=== PATIENT | male | born 1965 | race Caucasian/White ===

== ENCOUNTER 2016-10-15 11:26 | Inpatient (IN) ==
[2016-10-15] MEDS ORDERED: cefOXitin 2,000 MG in D5% in Water (Mini-Bag+) 100 ML IVPB ONE (11:57)
[2016-10-15] MEDS ORDERED: Lidocaine -MPF 1% 2 ML VIAL ID ONE (11:57)
[2016-10-15] MEDS ORDERED: Ringers Solution, Lactated 1,000 ML IVC SCH ×2 (12:00→14:30)
--- NOTE | 2016-10-15 12:21 | Anesthesia Evaluation PreOp ---
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: Other (anxiety) Other Medical History: Denies Any Significant HX Anesthesia History: No Prior Anesthetic Complications, Past Anesthesia (cscope) Alcohol Use: none Drug use: none Medications and Allergies Acyclovir [Zovirax] 400 mg PO DAILY 10/09/16 [History] Aspirin [Lo-Dose Aspirin EC] 81 mg PO DAILY 10/09/16 [History] Lisinopril [Zestril] 40 mg PO DAILY 10/09/16 [History] Sertraline [Zoloft] 25 mg PO DAILY 10/09/16 [History] Allergies No Known Allergies Allergy (Verified 10/09/16 14:46) - Meds/Allergy Pre-op Review Medications Reviewed: Yes Allergies Reviewed: Yes Beta Blockers on Current Med List: No Anesthesia Results - Labs Laboratory Tests 10/09/16 10/09/16 10/09/16 14:56 14:56 14:56 Hgb 15.3 Hct 44.1 Plt Count 251 PT 11.8 INR 1.1 APTT 31.9 Sodium 137 Potassium 4.1 Creatinine 1.03 - Imaging EKG: report reviewed (nsr) Anesthesia Exam O2 Sat Height 1.75 m Height 1.75 m Weight 112.037 kg Weight 115.212 kg Height: 1.75 Weight: 112 NPO (# of Hours): >8 - HEENT Pupil (Motor): Pupils equal, EOMI Mallampati: I Teeth: Normal Oral Opening: Greater than 3 - UNION CONTRACT REPRESENTATIVE LOC: Oriented UNION CONTRACT REPRESENTATIVE Motor: Normal RUE, Normal LUE, Normal RLE, Normal LLE, Normal Face UNION CONTRACT REPRESENTATIVE Sensory: Normal: RUE, LUE, RLE, LLE, Face - Cardiac Rhythm: Regular Murmur: None - Pulmonary Breath Sounds: bilateral Clear Respiratory Effort: Symmetrical Anesthesia Assess/Plan ASA Score: 2 Modified Phoenix Scale for Level of Consciousness: Cooperative, oriented, and tranquil Anesthetic Plan: General Monitoring Plan: Standard Monitors Recovery Plan: PACU
--- NOTE | 2016-10-15 12:22 | History & Physical Report ---
Date of Encounter: 10/15/16 Time of Encounter: 12:21 24 Hour HP Update - Instructions Instructions: If the History and Physical is less than 30 days old and was completed prior to A.M. admission and or procedure and has NOT been updated on calendar day of procedure please complete this update prior to performing procedure. - Update Patient reports changes in Medical Condition: No Changes in examination, assessment, or condition: No Changes in Medication: No Preop tests/diagnostics Reviewed: Yes Pre-Op MRSA Screen: Negative Surgery Remains Indicated: Yes Consent for Planned Operative Procedure(s) Verified: Yes - Pre-Operative Checklist Preoperative Checklist Indicated: No Prophylactic Antibiotic Ordered: Yes Home Medications Include Beta Lisy: No Beta Lisy Taken Today (Day of Surgery): No Beta Lisy Taken Yesterday (Day Prior to Surgery): No Is VTE Prophylaxis Indicated?: NO
[2016-10-15] MEDS ORDERED: *HR* Rocuronium Bromide 50 MG/5 ML VIAL ONE ×2 (12:25→13:57)
[2016-10-15] MEDS ORDERED: Lidocaine -MPF 2% 2 ML VIAL ONE ×2 (12:25→13:51)
[2016-10-15] MEDS ORDERED: *HR* Succinylcholine 200 MG/10 ML VIAL IVP ONE (12:25)
[2016-10-15] MEDS ORDERED: Lidocaine -MPF 4% 5 ML AMPUL ONE (12:25)
[2016-10-15] MEDS ORDERED: *HR* FentaNYL (PF) 100 MCG/2 ML VIAL ONE (12:25)
[2016-10-15] MEDS ORDERED: Dexamethasone 4 MG/ML VIAL ONE (12:25)
[2016-10-15] MEDS ORDERED: *HR* Propofol 200 MG/20 ML VIAL IVP ONE (12:25)
[2016-10-15] MEDS ORDERED: Ondansetron 4 MG/2 ML VIAL ONE (12:25)
[2016-10-15] MEDS ORDERED: *HR* Midazolam HCl 2 MG/2 ML VIAL ONE (12:25)
[2016-10-15] MEDS ORDERED: *HR* Phenylephrine 10 MG/ML VIAL ONE (13:15)
[2016-10-15] MEDS ORDERED: *HR* Metoprolol 5 MG/5 ML VIAL IVP ONE (13:35)
[2016-10-15] MEDS ORDERED: *HR* Labetalol 100 MG/20 ML MDV IVP PRN (14:26)
[2016-10-15] MEDS ORDERED: *HR* Promethazine 25 MG/ML VIAL IVP PRN (14:26)
[2016-10-15] MEDS ORDERED: *HR* HYDROmorphone 2 MG/ML SYRINGE ONE (15:34)
[2016-10-15] MEDS ORDERED: Neostigmine Methylsulfate 3 MG/3 ML SYRINGE ONE (15:41)
[2016-10-15] MEDS ORDERED: CefOXitin 1,000 MG VIAL ONE (15:57)
--- NOTE | 2016-10-15 16:26 | Operative Note ---
Date of procedure: 10/15/16 Pre-op diagnosis: sigmoid colon cancer Post-op diagnosis: same Procedure: Laparoscopic sigmoid resection Anesthesia: SVETLANAA Surgeon: Jonathan Oates Estimated blood loss (cc): 150 Specimen: sigmoid colon Disposition: PACU Procedure in Detail: Date of surgery: 10/15/16 After properly identifying the patient, the patient was brought to the operating room and placed in the supine position. After proper IV sedation was achieved followed by general endotracheal intubation, the patient was placed in the low lithotomy position and the patient's abdomen and perianal area were prepped and draped in normal sterile fashion. A timeout was performed noting the patient's name and type of procedure to be performed. A 15 blade scalpel was used to make an incision just to the right of the midline above the umbilicus. A 12 mm Visiport was then used to dissect the subcutaneous tissue, external and internal oblique fascia, and transversalis abdominous fascia of the abdomen was entered. A laparoscopic camera was placed to the port which showed no injury to the intra-abdominal organs upon entry. A right lower quadrant 5 mm port and a infraumbilical near midline 5mm port were placed under direct camera visualization. A left lateral 12 mm port was then placed under direct camera visualization. The patient was placed in reverse Trendelenburg position and the right upper quadrant was examined. First the left upper quadrant and splenic flexure were identified and examined. The splenic flexure was taken down with Bovie cauterization blunt dissection. F lateral sidewall attachments were also dissected free with comminution Bovie cauterization and retraction. This allowed for medial rotation of the descending colon. The colon was examined and 2 areas of blue staining were noted along the serosa of the sigmoid approximately 8 cm from one another. The sigmoid colon was then retracted anteriorly and the mesentery was scored at the base with Bovie cauterization. This allowed for careful dissection through the mesenteric adipose tissue. A laparoscopic LigaSure was then used to further dissect through the mesentery until the left ureter could be carefully identified which was noted to be outside of the dissection field. Dissection was carried down to the sacral prominence and the peritoneum to the left and right lateral of the rectosigmoid junction was scored with Bovie cauterization. This allowed for further dissection of the mesentery away from its normal resting position. The decision was made to go ahead and convert this to the open procedure by making a incision from the level of the pubic symphysis to just inferior to the umbilicus along the midline. Bovie cauterization was used to dissect through subcutaneous tissue and the rectus abdominous fascia was incised and the abdomen was opened. A medium sized Demetris was brought onto the field to retract and protect the subcutaneous tissue. The remaining dense lymphatics of the sigmoid mesentery were transected with a handheld LigaSure and Bovie cauterization until the rectosigmoid junction was identified and transected with a contour stapler. The sigmoid segment was then removed and the left colonic stump was identified. The staple line was excised and sizers were placed through the which was used to determine that a 29-Anguillan stapler would be appropriate. A 2-0 Prolene suture was used to create a pursestring along the opening of the left colonic stump and a EEA stapler was brought onto the operative field. The anvil was placed through the opening and pursestring was tied. The male end of the EEA stapler was introduced through the anus and its end was extruded just anterior to the rectal staple line. The anvil was connected and the EEA staple was retracted and fired without difficult. Inspection demonstrated two intact anastomotic rings which were submitted to pathology. The pelvis was then filled with normal saline solution and air was insufflated through the anus while the left colon above the staple line was clamped. There were scant bubbles noticed, however, it was not certain whether or not this was a leak or residual air pockets in the pelvis. The staple line was imbricated with interrupted 3-0 silk sutures and the pelvis was once again filled with saline and air was insufflated through the anus which showed no evidence of leak or air bubbles. The pelvis was then suctioned and this time filled with normal saline containing Mefoxin. The decision was made to conclude the surgical procedure by removing all ports and placing Seprafilm within the abdomen. The Demetris was removed and the fascia was reapproximated with 2 running #1 PDS sutures. The subcutaneous tissue was reapproximated with interrupted 2-0 Vicryl sutures and the remaining epidermal and dermal layers were reapproximated with hilaria. Needle, sponge, and instrument counts were correct 2 and the incisions were covered with 4 x 4's and Band-Aids. The patient was aroused from IV sedation, extubated in the operating room without complication, and transported to the recovery room in stable condition.
[2016-10-15] MEDS: *HR* HYDROmorphone (PF) 1 MG/ML SYRINGE IVP PRN ×4 (17:12→19:45)
--- NOTE | 2016-10-15 18:27 | Anesthesia Evaluation Post Op ---
Date of Encounter: 10/15/16 Time of Encounter: 18:25 - Vital Signs Vital Signs: Vital Signs/O2 Sat/Glucose, Most Current Temp Pulse Resp BP Pulse Ox 10/15/16 18:06 97.4 F L 105 16 113/66 98 10/15/16 17:56 110 16 122/62 98 10/15/16 17:46 99 16 119/68 98 10/15/16 17:36 97.1 F L 106 16 119/67 95 10/15/16 17:26 98 16 120/68 98 10/15/16 17:16 97 16 121/68 98 10/15/16 17:06 97.0 F L 97 16 125/66 97 10/15/16 16:56 100 16 123/77 94 10/15/16 16:46 89 16 133/78 100 10/15/16 16:36 97.0 F L 81 14 123/72 100 - Lungs Lungs: Clear Ascult./Percussion - Airway Airway: Non-obstructed - Cardiovascular Regular Rate - Mental Status Mental Status: Alert & Oriented, Answers Appropriately - Pain Pain Scale: 2 Pain Scale used: Numeric (1 - 10) - Nausea Vomiting Nausea Vomiting: Not Present - Hydration Hydration: NPO, Reyes catheter - Discharge PostOp Status: Transfer Patient to floor Anes Supervising Prov Stmt: Pt seen/evaluated, VSS And pt has met criteria for dischage to floor. - MD Nasir
[2016-10-15] MEDS ORDERED: Naloxone 0.4 MG/ML INJ IVP PRN (18:57)
[2016-10-15] MEDS ORDERED: 0.9 % Sodium Chloride 1,000 ML IVC SCH (18:57)
[2016-10-15] MEDS ORDERED: Ondansetron 4 MG/2 ML VIAL IVP PRN (18:57)
[2016-10-15] MEDS: Ketorolac 30 MG/ML VIAL IM SCH (19:30)
[2016-10-16] MEDS: Ketorolac 30 MG/ML VIAL IM SCH ×5 (00:29→23:14)
[2016-10-16] MEDS: *HR* HYDROmorphone (PF) 1 MG/ML SYRINGE IVP PRN ×2 (01:31→06:18)
[2016-10-16 05:09] LABS: Basophils % 0.1 %; Hematocrit 40.8 % (37.5-50.1); Hemoglobin 13.7 g/dL (12.9-16.9); Immature Granulocytes % 0.6 % (0-4); Lymphocytes # 0.9 K/mcL (0.6-4.6); Lymphocytes % 6.6 %; Mean Corpuscular HGB Conc 33.6 g/dL (31.6-35.5); Mean Corpuscular Hemoglobin 28.5 pg (28.0-33.3); Mean Platelet Volume 9.7 fL (9.4-12.4); Monocytes % 8.8 %; Neutrophils # 11.9 K/mcL (1.6-8.9); Platelet Count 254 K/mcL (140-400); Red Cell Distribution Width 13.3 % (11.5-14.5); Segmented Neutrophils % 83.9 %
[2016-10-16 05:14] LABS: Monocytes # 1.3 K/mcL (0.0-1.3)
[2016-10-16 05:27] LABS: BUN/Creatinine Ratio 12 (6-26); Blood Urea Nitrogen 12 mg/dL (8-26); Carbon Dioxide 22 mEq/L (19-29); Chloride 105 mEq/L (98-109); Glucose 129 mg/dL (70-99); Magnesium 1.8 mg/dL (1.6-2.6); Osmolality,Calculated 285 (280-300); Potassium 4.7 mEq/L (3.5-4.5); Sodium 137 mEq/L (136-145); eGFR For African Americans > 60 (> 60); eGFR For Non-African Americans > 60 (> 60)
[2016-10-16] MEDS ORDERED: cefOXitin 1,000 MG in D5% in Water (Mini-Bag+) 100 ML IVPB STA (06:28)
--- NOTE | 2016-10-16 07:15 | General Surgery Progress Note ---
Date of Encounter: 10/16/16 Time of Encounter: 07:13 - Assessment and Plan (1) Cancer of sigmoid Current Visit: Yes Status: Acute The patient is POD#1 from a laparoscopic sigmoid resection. Noted mild elevation of his WBC which is anticipated due to recent surgery and "stirring up " in the margination of white cells from the vessels. Continue to monitor. We will DC Reyes this a.m. Will allow clears. Start oral Percocet and continue with IV Dilaudid as needed. Subjective Patient reports: other (Noted incisional abdominal pain. No nausea. No flatus. ) Objective Vital Signs - Last 8 Hours Temp Pulse Resp BP Pulse Ox 10/16/16 06:56 98.9 F 92 16 98/60 93 10/16/16 04:13 98.7 F 86 18 92/61 96 10/15/16 23:43 98.5 F 106 18 99/60 96 Intake and Output 10/15/16 10/15/16 10/16/16 15:59 23:59 07:59 Intake Total 30 / 30 0 / 0 Output Total 575 / 575 275 / 275 Balance -545 / -545 -275 / -275 Intake: Oral 30 / 30 0 / 0 Output: Estimated Blood Loss 150 / 150 Urine Amount (Catheter) 200 / 200 Catheter 225 / 225 275 / 275 Other: Weight 112.037 kg 113.511 kg Blood Glucose* 134 112 Patient Weight 10/16/16 23:59 Weight 113.511 kg - General physical appearance well developed, well nourished, no distress - Respiratory normal expansion - Abdomen Abdomen: Present: bowel sounds present, soft, tender (Noted in the lower abdomen ) - Labs 10/16/16 03:48 10/16/16 03:48 Diabetes panel 10/16/16 Range/Units 03:48 Sodium 137 (136-145) mEq/L Potassium 4.7 H (3.5-4.5) mEq/L Chloride 105 (98-109) mEq/L Carbon Dioxide 22 (19-29) mEq/L BUN 12 (8-26) mg/dL Creatinine 0.98 (0.72-1.25) mg/dL Glucose 129 H (70-99) mg/dL Calcium 9.0 (8.6-10.8) mg/dL Calcium panel 10/16/16 Range/Units 03:48 Calcium 9.0 (8.6-10.8) mg/dL Pituitary panel 10/16/16 Range/Units 03:48 Sodium 137 (136-145) mEq/L Potassium 4.7 H (3.5-4.5) mEq/L Chloride 105 (98-109) mEq/L Carbon Dioxide 22 (19-29) mEq/L BUN 12 (8-26) mg/dL Creatinine 0.98 (0.72-1.25) mg/dL Glucose 129 H (70-99) mg/dL Calcium 9.0 (8.6-10.8) mg/dL Adrenal panel 10/16/16 Range/Units 03:48 Sodium 137 (136-145) mEq/L Potassium 4.7 H (3.5-4.5) mEq/L Chloride 105 (98-109) mEq/L Carbon Dioxide 22 (19-29) mEq/L BUN 12 (8-26) mg/dL Creatinine 0.98 (0.72-1.25) mg/dL Glucose 129 H (70-99) mg/dL Calcium 9.0 (8.6-10.8) mg/dL - VTE Documentation of Mechanical Device: Intermittent pneumatic compression device Consult Discharge Plan - Plan Referrals: Jonathan Oates MD [Partnered Physician] - 10/30/16 2:35 pm Jolene Ross CNP [Primary Care Provider] -
[2016-10-16] MEDS ORDERED: *HR* HYDROmorphone (PF) 1 MG/ML SYRINGE IVP PRN (07:16)
[2016-10-16] MEDS: Pantoprazole 40 MG VIAL IVP SCH (08:19)
[2016-10-16] MEDS: *HR* OxyCODONE/APAP 10/325 TABLET PO PRN ×3 (08:24→21:42)
[2016-10-16] MEDS: 0.9 % Sodium Chloride 1,000 ML IVC SCH ×2 (08:30→12:44)
[2016-10-16] MEDS: *HR* Heparin 5,000 UNIT/ML VIAL SQ SCH ×2 (17:26→17:38)
[2016-10-17] MEDS: 0.9 % Sodium Chloride 1,000 ML IVC SCH ×2 (02:01→17:02)
[2016-10-17 04:43] LABS: Basophils % 0.3 %; Eosinophils % 0.3 %; Hematocrit 35.4 % (37.5-50.1); Immature Granulocytes % 0.8 % (0-4); Lymphocytes # 1.8 K/mcL (0.6-4.6); Mean Corpuscular HGB Conc 32.8 g/dL (31.6-35.5); Mean Corpuscular Volume 85.3 fL (83.0-100.0); Mean Platelet Volume 9.3 fL (9.4-12.4); Monocytes # 0.9 K/mcL (0.0-1.3); Monocytes % 10.9 %; Neutrophils # 5.1 K/mcL (1.6-8.9); Platelet Count 184 K/mcL (140-400); Red Blood Count 4.15 M/mcL (4.19-5.50); Red Cell Distribution Width 13.4 % (11.5-14.5); Segmented Neutrophils % 64.7 %
[2016-10-17 05:02] LABS: Hemoglobin 11.6 g/dL (12.9-16.9)
[2016-10-17 05:03] LABS: BUN/Creatinine Ratio 12 (6-26); Blood Urea Nitrogen 11 mg/dL (8-26); Calcium 8.4 mg/dL (8.6-10.8); Carbon Dioxide 21 mEq/L (19-29); Chloride 107 mEq/L (98-109); Glucose 105 mg/dL (70-99); Osmolality,Calculated 286 (280-300); Potassium 3.7 mEq/L (3.5-4.5); Sodium 138 mEq/L (136-145); eGFR For African Americans > 60 (> 60); eGFR For Non-African Americans > 60 (> 60)
[2016-10-17] MEDS: Ketorolac 30 MG/ML VIAL IM SCH ×3 (05:38→16:59)
[2016-10-17] MEDS: *HR* OxyCODONE/APAP 10/325 TABLET PO PRN ×3 (05:38→19:55)
[2016-10-17] MEDS: *HR* Heparin 5,000 UNIT/ML VIAL SQ SCH ×2 (06:36→16:59)
[2016-10-17] MEDS: Pantoprazole 40 MG VIAL IVP SCH (08:38)
--- NOTE | 2016-10-17 14:21 | General Surgery Progress Note ---
Date of Encounter: 10/17/16 Time of Encounter: 13:15 - Assessment and Plan (1) Cancer of sigmoid Current Visit: Yes Status: Acute POD #2 Laparoscopic sigmoid resection with Dr. Oates Continue clear liquids IV fluids Supportive care/pain control Increase activity as tolerated- ambulate hallways IS every 1 hour while awake Repeat am labs Pathology pending (2) DVT prophylaxis Current Visit: Yes Status: Acute Heparin 5,000 units SQ twice daily for DVT prophylaxis Ambulate hallways TID with assistance Subjective Patient reports: no new complaints, still having pain (surgical), tolerating liquids well, voiding w/o difficulty, no flatus, bowel movement (liquid X 2), nausea (mild nausesa this morning), afebrile Objective Vital Signs - Last 8 Hours Temp Pulse Resp BP Pulse Ox 10/17/16 10:23 98.0 F 96 16 120/81 96 10/17/16 06:54 98.1 F 89 18 103/66 93 Intake and Output 10/16/16 10/17/16 10/17/16 23:59 07:59 15:59 Intake Total 180 / 180 1060 / 1060 800 / 800 Output Total 325 / 325 0 / 0 250 / 250 Balance -145 / -145 1060 / 1060 550 / 550 Intake: IV Fluids 1000 / 1000 0.9 % Sodium Chloride 1, 1000 / 1000 000 ML @ 75 mls/hr IVC . [id number] ELVIN Rx#: [id number] Oral 180 / 180 60 / 60 800 / 800 Output: Urine 325 / 325 0 / 0 250 / 250 Other: Meal Dinner Breakfast Weight 122.3 kg Patient Weight 10/17/16 23:59 Weight 122.3 kg - General physical appearance well developed, well nourished, no distress - Eyes normal ocular movement - ENT normal mucosa, atraumatic, normocephalic - Neck Neck exam: trachea midline - Respiratory normal respiratory effort, clear to auscultation - Abdomen Abdomen: Present: bowel sounds present (minimal, hypoactive), soft, tender ( expected post-operative tenderness) - Incision Incision: Present: clean and dry, intact - Integumentary no rash - Neurologic CN 2-12 grossly intact - Psychiatric oriented to time, oriented to person, oriented to place, speech is normal, memory intact - Labs 10/17/16 04:15 04/07/17 04:15 Diabetes panel 10/17/16 Range/Units 04:15 Sodium 138 (136-145) mEq/L Potassium 3.7 D (3.5-4.5) mEq/L Chloride 107 (98-109) mEq/L Carbon Dioxide 21 (19-29) mEq/L BUN 11 (8-26) mg/dL Creatinine 0.89 (0.72-1.25) mg/dL Glucose 105 H (70-99) mg/dL Calcium 8.4 L (8.6-10.8) mg/dL Calcium panel 10/17/16 Range/Units 04:15 Calcium 8.4 L (8.6-10.8) mg/dL Pituitary panel 10/17/16 Range/Units 04:15 Sodium 138 (136-145) mEq/L Potassium 3.7 D (3.5-4.5) mEq/L Chloride 107 (98-109) mEq/L Carbon Dioxide 21 (19-29) mEq/L BUN 11 (8-26) mg/dL Creatinine 0.89 (0.72-1.25) mg/dL Glucose 105 H (70-99) mg/dL Calcium 8.4 L (8.6-10.8) mg/dL Adrenal panel 10/17/16 Range/Units 04:15 Sodium 138 (136-145) mEq/L Potassium 3.7 D (3.5-4.5) mEq/L Chloride 107 (98-109) mEq/L Carbon Dioxide 21 (19-29) mEq/L BUN 11 (8-26) mg/dL Creatinine 0.89 (0.72-1.25) mg/dL Glucose 105 H (70-99) mg/dL Calcium 8.4 L (8.6-10.8) mg/dL - VTE Documentation of Mechanical Device: Graduated compression elastic hosiery Consult Discharge Plan - Plan Referrals: Jonathan Oates MD [Partnered Physician] - 10/30/16 2:35 pm Jolene Ross CNP [Primary Care Provider] - - Attending Attestation I examined this patient and my medical decision-making was reviewed with the ELECTROENCEPHALOGRAM TECHNOLOGIST/PA/Advanced Practice Nurse/Resident Physician. I agree with the documented findings, disposition and treatment plan as described except to the extent set forth below. Discussed the with the advanced practice nurse regarding the patient's assessment and evaluation. I agree with the above. He states he feels better. No more nausea. Positive liquid stools but no flatus Incision CDI. No erythema. Positive bowel sounds. Will write to advance to full liquids for dinner but will continue IVF. Await full return of bowel function.
[2016-10-18] MEDS: Ketorolac 30 MG/ML VIAL IM SCH ×3 (00:45→11:09)
[2016-10-18] MEDS: *HR* OxyCODONE/APAP 10/325 TABLET PO PRN ×2 (03:23→10:40)
[2016-10-18 04:04] LABS: Basophils % 0.3 %; Eosinophils # 0.1 K/mcL (0.0-0.6); Hematocrit 34.6 % (37.5-50.1); Hemoglobin 11.6 g/dL (12.9-16.9); Immature Granulocytes % 0.6 % (0-4); Lymphocytes # 1.2 K/mcL (0.6-4.6); Lymphocytes % 17.2 %; Mean Corpuscular HGB Conc 33.5 g/dL (31.6-35.5); Mean Corpuscular Hemoglobin 28.3 pg (28.0-33.3); Mean Corpuscular Volume 84.4 fL (83.0-100.0); Mean Platelet Volume 9.2 fL (9.4-12.4); Monocytes # 0.7 K/mcL (0.0-1.3); Monocytes % 10.3 %; Neutrophils # 5.1 K/mcL (1.6-8.9); Platelet Count 191 K/mcL (140-400); Red Cell Distribution Width 13.3 % (11.5-14.5); Segmented Neutrophils % 70.6 %
[2016-10-18 04:14] LABS: BUN/Creatinine Ratio 8 (6-26); Blood Urea Nitrogen 6 mg/dL (8-26); Calcium 8.5 mg/dL (8.6-10.8); Carbon Dioxide 22 mEq/L (19-29); Chloride 109 mEq/L (98-109); Glucose 100 mg/dL (70-99); Osmolality,Calculated 288 (280-300); Potassium 3.7 mEq/L (3.5-4.5); Sodium 140 mEq/L (136-145); eGFR For African Americans > 60 (> 60); eGFR For Non-African Americans > 60 (> 60)
[2016-10-18] MEDS: *HR* Heparin 5,000 UNIT/ML VIAL SQ SCH (05:53)
[2016-10-18] MEDS: Pantoprazole 40 MG VIAL IVP SCH (07:58)
[2016-10-18] MEDS: 0.9 % Sodium Chloride 1,000 ML IVC SCH (07:58)
--- NOTE | 2016-10-18 13:23 | Discharge Summary ---
Date of Encounter: 10/18/16 Time of Encounter: 11:00 - Discharge Diagnosis (1) Cancer of sigmoid Priority: Secondary Status: Acute (2) DVT prophylaxis Priority: Primary Status: Acute (3) Depression Priority: Secondary Status: Acute Qualifiers: Depression Type: unspecified Qualified Code(s): F32.9 - Major depressive disorder, single episode, unspecified (4) HTN (hypertension) Priority: Secondary Status: Acute Qualifiers: Hypertension type: essential hypertension Qualified Code(s): I10 - Essential (primary) hypertension - Discharge Medications Prescriptions: Oxycodone HCl/Acetaminophen [Percocet 5-325 mg Tablet] 1 each PO Q4HR #30 tablet Docusate [Colace] 100 mg PO BID #30 capsule Home Medications: Acyclovir [Zovirax] 400 mg PO DAILY 10/09/16 [History] Aspirin [Lo-Dose Aspirin EC] 81 mg PO DAILY 10/09/16 [History] Lisinopril [Zestril] 40 mg PO DAILY 10/09/16 [History] Sertraline [Zoloft] 25 mg PO DAILY 10/09/16 [History] Docusate [Colace] 100 mg PO BID #30 capsule 10/18/16 [Rx] Oxycodone HCl/Acetaminophen [Percocet 5-325 mg Tablet] 1 each PO Q4HR #30 tablet 10/18/16 [Rx] Allergies/Adverse Reactions: Allergies No Known Allergies Allergy (Verified 10/15/16 12:36) General Surgery Exam Initial Vital Signs Temp Pulse Resp BP Pulse Ox 99.1 F 18 18 118/80 93 10/15/16 12:22 10/15/16 12:22 10/15/16 12:22 10/15/16 12:22 10/15/16 12:22 - General physical appearance well nourished, no distress, no pain, obese - Eyes PERRL, normal ocular movement - ENT normal mucosa, atraumatic, normocephalic - Neck trachea midline - Respiratory normal expansion, clear to auscultation - Cardiovascular Cardiovascular exam: Present: RRR - Abdomen Abdomen general surgery: Present: bowel sounds present, soft, tender (minimal post op tenderness) - Incision Incision: Present: clean and dry, intact - Integumentary Integumentary general surgery: Present: warm and dry, no abnormal pigmentation - Neurologic Present: CN 2-12 grossly intact - Musculoskeletal Present: normal posture - Psychiatric Psychiatric general surgery: Present: A&Ox3, appropriate Date of admission: 10/15/16 18:37 Primary care physician: Jolene Ross CNP Discharging clinician: Jonathan Oates Anticipated date of discharge: 10/18/16 - Patient Status Disposition: Home, Self-Care Condition: Good Overall status at discharge: patient is progressing back to baseline - Discharge Instructions Follow Up With: Jonathan Oates MD [Partnered Physician] - 10/30/16 2:35 pm Jolene Ross CNP [Primary Care Provider] - Additional Instructions: no lifting more than 20 lbs for 6 weeks no driving until first follow-up visit and cleared ok to shower ok to climb steps and ride in car with seatbelt in place - Diet and Activity Diet: advance to your usual diet - Hospital Course Hospital course: Mr. Garland is a 51 year old male who underwent a robotic sigmoid colectomy. He progressed appropriately after surgery and was started on a clear diet which he tolerated, it was advanced to soft. His pain was initially controlled with iv and transitioned to po pain medication. He was passing flatus and having appropriate urine output. He was up ambulating well. He was discharged home in stable condition - Time Spent with Patient Total time spent providing and/or coordinating discharge services: Labs on day of discharge: Labs from last 24 hours 10/18/16 10/18/16 03:37 03:37 WBC 7.2 RBC 4.10 L Hgb 11.6 L Hct 34.6 L MCV 84.4 MCH 28.3 MCHC 33.5 RDW 13.3 Plt Count 191 MPV 9.2 L Immature Gran % 0.6 Seg Neutrophils % 70.6 Lymphocytes % 17.2 Monocytes % 10.3 Eosinophils % 1.0 Basophils % 0.3 Neutrophils # 5.1 Lymphocytes # 1.2 Monocytes # 0.7 Eosinophils # 0.1 Basophils # 0.0 Sodium 140 Potassium 3.7 Chloride 109 Carbon Dioxide 22 BUN 6 L Creatinine 0.79 Est GFR ( Amer) > 60 Est GFR (Non-Af Amer) > 60 BUN/Creatinine Ratio 8 Glucose 100 H Calculated Osmolality 288 Calcium 8.5 L
[2016-10-21 10:31] VITALS: BP 115/74
== END 2016-10-18 15:25 | disposition home or self-care (01) | DRG 331 ==
LOC: SAMDAY 11:26 → 3ANU 18:37
PROVIDERS: ADMIT Surgery; ATTEND Surgery